=== PATIENT | male | born 1990 | race American Indian/Alaskan Native ===

== ENCOUNTER 2017-02-01 19:13 | Emergency (ER) | payer OTHER ==
[2017-02-01 19:33] VITALS: BP 140/87
--- NOTE | 2017-02-01 22:07 | Emergency Department Report ---
ED General Adult HPI - General Chief complaint: Headache Stated complaint: COLD/HEADACHE Time Seen by Provider: 02/01/17 21:51 Source: patient, RN notes reviewed Mode of arrival: Ambulatory Limitations: No Limitations - History of Present Illness Initial comments: PT c/o headache x 2 weeks. PT states he has a hx of migraines. PT also states that he has recently had a URI. PT states he is no longer coughing and his throat does not hurt any more but his is still having sinus pressure. no relief with zyrtec or Motrin PM PT states he made an appointment with PCP but it is not until next Tuesday Complaint: holden/ sinus pressure -: Gradual Location: head, face Radiation: non-radiation Severity scale (0 -10): 4 Quality: other (pressure ) Consistency: constant Worsens with: none Associated Symptoms: cough. denies: chest pain, loss of appetite, nausea/ vomiting Treatments Prior to Arrival: NSAID - Related Data Previous Rx's Medication Instructions Recorded Last Taken Type Azithromycin [Zithromax] 250 mg PO DAILY #6 tablet 02/01/17 Unknown Rx Butalb/Acetamin/Caff 50-325-40 1 tab PO Q6HR PRN #12 tab 02/01/17 Unknown Rx [Fioricet] Ibuprofen [Motrin] 600 mg PO Q8H PRN #15 tablet 02/01/17 Unknown Rx Allergies Allergy/AdvReac Type Severity Reaction Status Date / Time No Known Allergies Allergy Verified 01/15/15 03:47 ED Review of Systems ROS: Stated complaint: COLD/HEADACHE Other details as noted in HPI Comment: All other systems reviewed and negative Constitutional: denies: chills, fever ENT: throat pain (lasted 2 days, resolved ), congestion. denies: hearing loss Respiratory: cough (resolved ) Gastrointestinal: denies: abdominal pain Neurological: headache. denies: paresthesias, abnormal gait ED Past Medical Hx - Past Medical History Previous Medical History?: No Hx Headaches / Migraines: Yes - Surgical History Past Surgical History?: No - Social History Smoking Status: Current Every Day Smoker Substance Use Type: None - Medications Home Medications: Home Medications Medication Instructions Recorded Confirmed Last Taken Type Azithromycin [Zithromax] 250 mg PO DAILY #6 tablet 02/01/17 Unknown Rx Butalb/Acetamin/Caff 50-325-40 1 tab PO Q6HR PRN #12 tab 02/01/17 Unknown Rx [Fioricet] Ibuprofen [Motrin] 600 mg PO Q8H PRN #15 tablet 02/01/17 Unknown Rx ED Physical Exam - General Limitations: No Limitations General appearance: alert, in no apparent distress - Head Head exam: Present: atraumatic, normocephalic, other (maxillary sinus tenderness facundo ) - Eye Eye exam: Present: normal appearance. Absent: conjunctival injection - ENT ENT exam: Present: normal orophraynx, mucous membranes moist, TM's normal bilaterally, normal external ear exam, other (turbinates boggy facundo ) - Neck Neck exam: Present: normal inspection. Absent: tenderness, meningismus - Respiratory Respiratory exam: Present: normal lung sounds bilaterally, respiratory distress. Absent: chest wall tenderness - Cardiovascular Cardiovascular Exam: Present: regular rate, normal rhythm, normal heart sounds - Rectal Rectal exam: Present: deferred - Extremities Exam Extremities exam: Present: normal inspection, full ROM - Back Exam Back exam: Present: normal inspection, full ROM. Absent: tenderness, CVA tenderness (R) - Neurological Exam Neurological exam: Present: alert, oriented X3 - Psychiatric Psychiatric exam: Present: normal affect, normal mood - Skin Skin exam: Present: warm, dry, intact ED Course Vital Signs 02/01/17 19:31 Temperature 97.9 F Pulse Rate 81 Respiratory 20 Rate Blood Pressure 140/87 [Left] O2 Sat by Pulse 100 Oximetry - Reevaluation(s) Reevaluation #1: 02/01/17 22:08 PT aware of dx and plan of care. PT encouraged to follow up with PCP as scheduled. PT requesting work excuse for today - Pulse Oximetry Interpretation Digit-Finger Initial Pulse Oximetry Readin Actions Taken: none ED Medical Decision Making - Differential Diagnosis holden, migraine, sinusitis Critical Care Time: No Critical care attestation.: If time is entered above; I have spent that time in minutes in the direct care of this critically ill patient, excluding procedure time. ED Disposition Clinical Impression: Maxillary sinusitis, acute Qualifiers: Recurrence: non-recurrent Qualified Code(s): J01.00 - Acute maxillary sinusitis , unspecified Headache Qualifiers: Headache type: unspecified Headache chronicity pattern: acute headache Intractability: not intractable Qualified Code(s): R51 - Headache Disposition: DISCHARGED TO HOME OR SELFCARE Is pt being admited?: No Does the pt Need Aspirin: No Condition: Stable Instructions: Migraine Headache (ED), Sinusitis (ED), Acute Headache (ED) Prescriptions: Azithromycin [Zithromax] 250 mg PO DAILY #6 tablet Butalb/Acetamin/Caff 50-325-40 [Fioricet] 1 tab PO Q6HR PRN #12 tab PRN Reason: Headache Ibuprofen [Motrin] 600 mg PO Q8H PRN #15 tablet PRN Reason: Pain Referrals: ANDREA OLMSTEAD MD [Primary Care Provider] - 3-5 Days Forms: Work/School Release Form(ED) Time of Disposition: 22:10
== END 2017-02-01 22:15 | disposition home or self-care (01) ==
LOC: ED 19:13
DX: J01.00 Acute maxillary sinusitis, unspecified (principal); G43.909 Migraine, unspecified, not intractable, without status migrainosus; F17.200 Nicotine dependence, unspecified, uncomplicated
CPT/HCPCS: 99282

== ENCOUNTER 2017-04-03 08:29 | Emergency (ER) | payer OTHER ==
[2017-04-03 08:37] VITALS: BP 151/99
== END 2017-04-03 08:45 | disposition left against medical advice (07) ==
LOC: ED 08:29
DX: M79.1 Myalgia (principal); Z53.21 Procedure and treatment not carried out due to patient leaving prior to being seen by health care provider

== ENCOUNTER 2017-08-20 15:33 | Emergency (ER) | payer OTHER ==
[2017-08-20 15:49] VITALS: BP 138/89
[2017-08-20] MEDS ORDERED: FIORICET PO ONE (18:08)
--- NOTE | 2017-08-20 18:14 | Emergency Department Report ---
ED General Adult HPI - General Chief complaint: Fall Stated complaint: FALL,HEAD PAIN Time Seen by Provider: 08/20/17 18:00 Source: patient Mode of arrival: Ambulatory Limitations: No Limitations - History of Present Illness Initial comments: PT states this morning around 0930, he was walking out of his house and he slipped. PT states his head hit the handrail. PT states he did not fall off the porch as the triage note implies. PT states it was "a little bump". PT denies any bruises or swelling to head. PT states he was very upset that he started his day this way. PT states he started crying after he slipped. PT states he got "worked up" and was almost "hysterical". PT states he cried so hard, he vomited x 1. No n/v now or in the last 8 hours. PT denies loc. PT states he went to work, but he was sent home around 10:00 due to his headache. PT states when he got home, he took Motrin and his pain (8/10) decreased to a 4/ 10. PT states he has hx of migraines and this feels the same. PT states he is feeling better. PT states he needs a work excuse to go back to work. MD Complaint: headache -: Gradual Time: 09:30 Location: head Severity scale (0 -10): 4 Quality: aching Consistency: constant Improves with: medication Worsens with: none Associated Symptoms: headaches. denies: confusion, chest pain, fever/chills, nausea/vomiting Treatments Prior to Arrival: NSAID - Related Data Previous Rx's Medication Instructions Recorded Last Taken Type Butalb/Acetamin/Caff 50-325-40 1 tab PO Q6HR PRN #12 tab 08/20/17 Unknown Rx [Fioricet] Ibuprofen [Motrin] 600 mg PO Q8H PRN #15 tablet 08/20/17 Unknown Rx Allergies Allergy/AdvReac Type Severity Reaction Status Date / Time No Known Allergies Allergy Verified 01/15/15 03:47 ED Review of Systems ROS: Stated complaint: FALL,HEAD PAIN Other details as noted in HPI Comment: All other systems reviewed and negative Constitutional: denies: fever Eyes: denies: eye pain, vision change Cardiovascular: denies: chest pain, syncope Gastrointestinal: other (pt state he vomited when he cried at 0930 but he has had no further n/v ). denies: nausea, vomiting Musculoskeletal: other (denies neck pain ). denies: back pain Skin: other (denies wound ). denies: change in color Neurological: headache. denies: weakness, numbness, paresthesias, confusion, abnormal gait ED Past Medical Hx - Past Medical History Previous Medical History?: Yes Hx Headaches / Migraines: Yes - Surgical History Past Surgical History?: No - Social History Smoking Status: Current Some Day Smoker Substance Use Type: Alcohol, Marijuana - Medications Home Medications: Home Medications Medication Instructions Recorded Confirmed Last Taken Type Butalb/Acetamin/Caff 50-325-40 1 tab PO Q6HR PRN #12 tab 08/20/17 Unknown Rx [Fioricet] Ibuprofen [Motrin] 600 mg PO Q8H PRN #15 tablet 08/20/17 Unknown Rx ED Physical Exam - General Limitations: No Limitations General appearance: alert, in no apparent distress - Head Head exam: Present: atraumatic, normocephalic, normal inspection - Expanded Head Exam Expanded Head exam: Absent: laceration, abrasion, contusion, hematoma, racoon eyes, malhotra's sign, general tenderness, tenderness of temporal artery, CSF rhinorrhea , CSF otorrhea - Eye Eye exam: Present: normal appearance, PERRL, EOMI. Absent: conjunctival injection, nystagmus - ENT ENT exam: Present: normal exam, mucous membranes moist, normal external ear exam - Expanded ENT Exam Expanded Ear exam: Present: normal external inspection TM/Canal exam: Cerumen Impaction: Left TM Mouth exam: Absent: drooling, trismus Throat exam: Positive: normal inspection - Neck Neck exam: Present: normal inspection, full ROM, other (no post midline C-spine tenderness ). Absent: tenderness, lymphadenopathy - Respiratory Respiratory exam: Present: normal lung sounds bilaterally. Absent: respiratory distress, wheezes, rales, rhonchi - Cardiovascular Cardiovascular Exam: Present: regular rate, normal rhythm, normal heart sounds - GI/Abdominal GI/Abdominal exam: Present: soft. Absent: tenderness, guarding, rebound - Extremities Exam Extremities exam: Present: normal inspection, full ROM, normal capillary refill - Back Exam Back exam: Present: normal inspection, full ROM. Absent: tenderness, CVA tenderness (R), CVA tenderness (L), muscle spasm, paraspinal tenderness, vertebral tenderness - Neurological Exam Neurological exam: Present: alert, oriented X3, CN II-XII intact, normal gait - Expanded Neurological Exam Expanded Patient oriented to: Present: person, place, time Speech: Present: fluid speech Best Eye Response (Vandana): (4) open spontaneously Best Motor Response (Savage): (6) obeys commands Best Verbal Response (Savage): (5) oriented Savage Total: 15 - Psychiatric Psychiatric exam: Present: normal affect, normal mood - Skin Skin exam: Present: warm, dry, intact, normal color ED Course Vital Signs 08/20/17 08/20/17 15:46 18:22 Temperature 98.3 F Pulse Rate 85 Respiratory 18 18 Rate Blood Pressure 138/89 O2 Sat by Pulse 99 Oximetry - Reevaluation(s) Reevaluation #1: 08/20/17 18:20 Pt's head injury was very mild, he bumped in on hand rail. PT has not had persistent vomiting. He states after he bumped his head, he was frustrated/ upset and was crying so hard, he vomited x 1 approx 9 hours ago. No further vomiting. No signs of head injury on exam. Miner CT head Rules do not indicate a CT scan of head - Pulse Oximetry Interpretation Digit-Finger Initial Pulse Oximetry Readin Actions Taken: none ED Medical Decision Making - Differential Diagnosis headache, migraine, minor head injury Critical Care Time: No Critical care attestation.: If time is entered above; I have spent that time in minutes in the direct care of this critically ill patient, excluding procedure time. ED Disposition Clinical Impression: Minor head injury without loss of consciousness Qualifiers: Encounter type: initial encounter Qualified Code(s): S09.90XA - Unspecified injury of head, initial encounter Headache Qualifiers: Headache type: unspecified Headache chronicity pattern: acute headache Intractability: not intractable Qualified Code(s): R51 - Headache Disposition: DC-01 TO HOME OR SELFCARE Is pt being admited?: No Does the pt Need Aspirin: No Condition: Stable Instructions: Migraine Headache (ED), Minor Head Injury (ED), Acute Headache ( ED) Additional Instructions: Follow up with PCP in 3-5 days Recheck BP at follow up Return to the ED if you develop N/V, worsening headache, trouble with your memory, changes in your behavior Prescriptions: Butalb/Acetamin/Caff 50-325-40 [Fioricet] 1 tab PO Q6HR PRN #12 tab PRN Reason: Headache Ibuprofen [Motrin] 600 mg PO Q8H PRN #15 tablet PRN Reason: Pain Referrals: PRIMARY CAREMD [Primary Care Provider] - 3-5 Days REUBEN MONTANEZ MD [Staff Physician] - 3-5 Days [facility] [Outside] - 3-5 Days Forms: Work/School Release Form(ED) Time of Disposition: 18:31
== END 2017-08-20 18:46 | disposition home or self-care (01) ==
LOC: ED 15:33
DX: S09.90XA Unspecified injury of head, initial encounter (principal); G43.909 Migraine, unspecified, not intractable, without status migrainosus; F17.210 Nicotine dependence, cigarettes, uncomplicated; F12.10 Cannabis abuse, uncomplicated; W17.89XA Other fall from one level to another, initial encounter; Y93.89 Activity, other specified; Y92.89 Other specified places as the place of occurrence of the external cause; Y99.8 Other external cause status
CPT/HCPCS: 99282

== ENCOUNTER 2019-09-04 15:26 | Emergency (ER) | payer SELFPAY ==
[2019-09-04 16:16] VITALS: BP 141/90
--- NOTE | 2019-09-04 17:11 | XRay Report ---
Left shoulder, 3 views INDICATION: Pain following injury today FINDINGS: The joint space is maintained. There is no fracture or dislocation. No spurring or arthriti c change. No bone lesion or periostitis. No significant abnormality. IMPRESSION: Negative study Signer Name: Hector Isabel MD Signed: 09/04/2019 5:06 PM Workstation Name: [id number]
--- NOTE | 2019-09-04 17:31 | Emergency Department Report ---
HPI - General Chief Complaint: Extremity Injury, Upper Time Seen by Provider: 09/04/19 16:43 - HPI HPI: 29-year-old -[place] male presents to the emergency department with a complaint of some left shoulder pain after he accidentally had a couch section, that he was helping to carry, come down on the shoulder yesterday afternoon. Since that time he has had some pain and soreness that worsens with movement. He denies any numbness, paresthesias or any obvious deformity. He is right-hand dominant. He took one of his grandfather's oxycodone for his symptoms with some transient relief. No past medical history. ED Past Medical Hx - Past Medical History Previous Medical History?: Yes Hx Headaches / Migraines: Yes - Surgical History Past Surgical History?: No - Social History Smoking Status: Current Every Day Smoker Substance Use Type: Alcohol - Medications Home Medications: Home Medications Medication Instructions Recorded Confirmed Last Taken Type Butalb/Acetamin/Caff 50-325-40 1 tab PO Q6HR PRN #12 tab 08/20/17 Unknown Rx [Fioricet] HYDROcodone/APAP 5-325 [[place] 1 each PO Q6HR PRN #8 tablet 09/04/19 Unknown Rx 5/325] Ibuprofen [Motrin 600 MG tab] 600 mg PO Q8H PRN #15 tablet 09/04/19 Unknown Rx ED Review of Systems ROS: Stated complaint: RT ARM INJURY/PAIN Other details as noted in HPI Comment: All other systems reviewed and negative Constitutional: denies: chills, fever Cardiovascular: denies: chest pain Musculoskeletal: arthralgia, myalgia. denies: back pain, joint swelling Neurological: denies: headache, weakness, numbness, paresthesias Physical Exam - Physical Exam Vital Signs: Vital Signs 09/04/19 15:40 Temperature 98.3 F Pulse Rate 90 Respiratory 18 Rate Blood Pressure 141/90 [Right] O2 Sat by Pulse 97 Oximetry Physical Exam: GENERAL: The patient is well-developed well-nourished. HENT: Normocephalic. Atraumatic. Patient has moist mucous membranes. EYES: Extraocular motions are intact. NECK: Supple. Trachea is midline. No tenderness to palpation, step-off or deformity. ABDOMEN: There is no abdominal distention. SKIN: Skin is warm and dry. NEURO: The patient is awake, alert, and oriented. The patient is cooperative. The patient has no focal neurologic deficits. Normal speech. MUSCULOSKELETAL: There is some tenderness to palpation along the left anterior and posterior shoulder, along the trapezius muscle, but no obvious deformity. There is no limitation range of motion. ED Course Vital Signs 09/04/19 15:40 Temperature 98.3 F Pulse Rate 90 Respiratory 18 Rate Blood Pressure 141/90 [Right] O2 Sat by Pulse 97 Oximetry ED Medical Decision Making - Radiology Data Radiology results: image reviewed interpreted by me: X-ray of the left shoulder does not show any fracture, dislocation or any acute process. - Medical Decision Making Patient presents with some left shoulder pain, mostly located over the trapezius muscle, after a large couch came down on his shoulder. He has neurovascularly intact and has full range of motion of the shoulder. X-ray does not show any fracture, dislocation or any acute process. He has been given a prescription for some pain medication and a referral for orthopedist. He will return to the emergency Department with any worsening of his symptoms or any acute distress. - Differential Diagnosis fracture, contusion, dislocation Critical Care Time: No Critical care attestation.: If time is entered above; I have spent that time in minutes in the direct care of this critically ill patient, excluding procedure time. ED Disposition Clinical Impression: Left shoulder pain Qualifiers: Chronicity: acute Qualified Code(s): M25.512 - Pain in left shoulder Contusion of shoulder, left Qualifiers: Encounter type: initial encounter Qualified Code(s): S40.012A - Contusion of left shoulder, initial encounter Disposition: TO HOME OR SELFCARE Is pt being admited?: No Condition: Stable Instructions: Contusion in Adults (ED), Arthralgia (ED) Additional Instructions: Please follow-up with a primary care physician. I'm also giving you a referral for a local orthopedist, Dr. Neri, to follow up regarding your left shoulder pain. Return to the emergency Department with any worsening of your symptoms or any acute distress. You have been prescribed a medication that is sedating and therefore should not be taken prior to driving, working, and responsible for children and in no way should be mixed with alcohol of any quantity. Prescriptions: Ibuprofen [Motrin 600 MG tab] 600 mg PO Q8H PRN #15 tablet PRN Reason: Pain HYDROcodone/APAP 5-325 [[place] 5/325] 1 each PO Q6HR PRN #8 tablet PRN Reason: Pain Referrals: PRIMARY CARE, [Primary Care Provider] - 3-5 Days ANDREA NERI MD [Staff Physician] - 3-5 Days Forms: Accompanied Note, Work/School Release Form(ED) Time of Disposition: 17:34
== END 2019-09-04 17:52 | disposition home or self-care (01) ==
LOC: ED 15:26
DX: S40.012A Contusion of left shoulder, initial encounter (principal); G43.909 Migraine, unspecified, not intractable, without status migrainosus; F17.200 Nicotine dependence, unspecified, uncomplicated; Z79.899 Other long term (current) drug therapy; X58.XXXA Exposure to other specified factors, initial encounter; Y93.89 Activity, other specified; Y92.89 Other specified places as the place of occurrence of the external cause; Y99.8 Other external cause status